=== PATIENT | male | born 1965 | race American Indian/Alaskan Native ===

== ENCOUNTER 2019-06-14 10:51 | Observation (INO) | payer SELFPAY ==
[2019-06-14] MEDS ORDERED: ASPIRIN PO ONE (11:14)
--- NOTE | 2019-06-14 11:50 | XRay Report ---
CHEST 1 VIEW 11:28 AM INDICATION / CLINICAL INFORMATION: Chest Pain. COMPARISON: None available. FINDINGS: SUPPORT DEVICES: None. HEART / MEDIASTINUM: The heart size and pulmonary vasculature are normal. The aorta is normal in ha [place]. LUNGS / PLEURA: No significant pulmonary or pleural abnormality. No pneumothorax. ADDITIONAL FINDINGS: No significant additional findings. IMPRESSION: No acute findings. Signer Name: Hermes Howard MD Signed: 06/14/2019 11:46 AM Workstation Name: [id number]
[2019-06-14] MEDS ORDERED: PEPCID IV ONE (12:08)
[2019-06-14] MEDS ORDERED: NITROSTAT SL PRN (12:08)
[2019-06-14] MEDS ORDERED: NACL 0.9% 1000 ML 1,000 ML IV ONE ×2 (12:08→15:47)
[2019-06-14] MEDS ORDERED: REGLAN IV ONE (12:08)
--- NOTE | 2019-06-14 12:09 | Emergency Department Report ---
ED General Adult HPI - General Chief complaint: Headache Stated complaint: CHEST PAIN/SOB Time Seen by Provider: 06/14/19 11:46 Source: patient, RN notes reviewed Mode of arrival: Ambulatory Limitations: No Limitations - History of Present Illness Initial comments: This is a 54-year-old gentleman. This patient is not known to this provider previously. The patient states she has a history of hypertension. He does not have a local primary care doctor. He also admits to history of recreational crack cocaine use. The patient presents to the ER with multiple complaints. The first complaint is chest pain. The chest pain is left-sided. It does not radiate to the back, arms and neck. There is no vomiting or diaphoresis. There is positive shortness of breath. The shortness of breath is not exertional. He has difficulty describing the nature of the shortness of breath. The patient denies DVT, pulmonary embolism risk factors. The patient endorses a second complaint of headache. The headache is occipital and frontal. The headache is present for a few days. The headache is not sudden or thunderclap in nature. The headache is not maximal intensity. The headache is not the most intense headache of his life. The headache is associa fracisco with resolved binocular blurry vision. This is now resolved. The patient also endorses shortness of breath. It is nonexertional. He indicates he feels like he has to take a deep breath. The patient admits to recreational crack cocaine use a few days ago. This was recreational in nature. -: Gradual, days(s) Location: head, chest Radiation: non-radiation Quality: aching Consistency: intermittent Improves with: none Worsens with: none - Related Data Home Medications Medication Instructions Recorded Confirmed Last Taken Lisinopril [Zestril TAB] 40 mg PO QDAY 06/14/19 06/14/19 06/11/19 amLODIPine [Norvasc] 10 mg PO DAILY 06/14/19 06/14/19 06/11/19 Previous Rx's Medication Instructions Recorded Last Taken Type Aspirin EC [Halfprin EC] 81 mg PO QDAY #30 tablet. 06/15/19 Unknown Rx Famotidine [Pepcid] 20 mg PO BID #60 tablet 06/15/19 Unknown Rx Allergies Allergy/AdvReac Type Severity Reaction Status Date / Time No Known Allergies Allergy Unverified 06/14/19 10:54 ED Review of Systems ROS: Stated complaint: CHEST PAIN/SOB Other details as noted in HPI Constitutional: denies: fever Eyes: vision change ENT: denies: dental pain, hearing loss, epistaxis Respiratory: shortness of breath. denies: cough Cardiovascular: chest pain Gastrointestinal: denies: abdominal pain, nausea, vomiting Genitourinary: denies: dysuria Musculoskeletal: denies: back pain Skin: denies: lesions Neurological: headache. denies: numbness, paresthesias, confusion, abnormal gait, vertigo Psychiatric: denies: homicidal thoughts, suicidal thoughts ED Past Medical Hx - Past Medical History Previous Medical History?: No Hx Hypertension: Yes - Surgical History Past Surgical History?: Yes Additional Surgical History: Right arm - Social History Smoking Status: Current Every Day Smoker Substance Use Type: Alcohol, Cocaine - Medications Home Medications: Home Medications Medication Instructions Recorded Confirmed Last Taken Type Lisinopril [Zestril TAB] 40 mg PO QDAY 06/14/19 06/14/19 06/11/19 History amLODIPine [Norvasc] 10 mg PO DAILY 06/14/19 06/14/19 06/11/19 History Aspirin EC [Halfprin EC] 81 mg PO QDAY #30 tablet. 06/15/19 Unknown Rx Famotidine [Pepcid] 20 mg PO BID #60 tablet 06/15/19 Unknown Rx ED Physical Exam - General Limitations: No Limitations General appearance: alert, in no apparent distress - Head Head exam: Present: atraumatic, normocephalic - Eye Eye exam: Present: normal appearance, PERRL, EOMI, other (visual acuity intact to finger counting and color perception at close distance.). Absent: nystagmus - ENT ENT exam: Present: normal exam, normal orophraynx, mucous membranes moist, normal external ear exam - Neck Neck exam: Present: normal inspection, full ROM. Absent: tenderness, meningismus - Respiratory Respiratory exam: Present: normal lung sounds bilaterally. Absent: respiratory distress - Cardiovascular Cardiovascular Exam: Present: regular rate, normal rhythm, normal heart sounds. Absent: bradycardia, tachycardia, irregular rhythm, systolic murmur, diastolic murmur, rubs, gallop - GI/Abdominal GI/Abdominal exam: Present: soft. Absent: distended, tenderness, guarding, rebound, rigid, pulsatile mass - Rectal Rectal exam: Present: deferred - Extremities Exam Extremities exam: Present: normal inspection, full ROM, normal capillary refill, other (2+ pulses noted in the bilateral upper, lower extremities. Compartments soft. No long bony tenderness. The pelvis is stable.). Absent: pedal edema, joint swelling, calf tenderness - Back Exam Back exam: Present: normal inspection, full ROM. Absent: tenderness, CVA tenderness (R), CVA tenderness (L), paraspinal tenderness, vertebral tenderness - Neurological Exam Neurological exam: Present: alert (there is no past-pointing. There is normal heel to roldan. There is negative pronator drift.), oriented X3, normal gait, other (Extraocular movements intact. Tongue midline. No facial droop. Facial sensation intact to light touch in the V1, V2, V3 distribution bilaterally. 5 and 5 strength in 4 extremities.. Sensation is intact to light touch in 4 extremities.). Absent: motor sensory deficit - Psychiatric Psychiatric exam: Present: anxious - Skin Skin exam: Present: warm, dry, intact, normal color. Absent: rash ED Course Vital Signs 06/14/19 06/14/19 06/14/19 11:11 11:37 11:40 Temperature 97.9 F Pulse Rate 69 60 Respiratory 20 18 Rate Blood Pressure 137/97 142/90 O2 Sat by Pulse 98 100 98 Oximetry 06/14/19 06/14/19 06/14/19 12:01 12:31 13:00 Temperature Pulse Rate 67 60 62 Respiratory 16 15 16 Rate Blood Pressure 142/90 142/90 128/81 O2 Sat by Pulse 98 99 99 Oximetry 06/14/19 06/14/19 06/14/19 13:30 14:00 14:30 Temperature Pulse Rate 66 66 61 Respiratory 17 15 14 Rate Blood Pressure 130/86 141/91 128/83 O2 Sat by Pulse 100 99 99 Oximetry - Reevaluation(s) Reevaluation #1: 06/14/19 14:41 Differential diagnosis, including but not limited to: Migraine headache, tension headache, cluster headache, complex migraine, pulmonary embolus, aortic disease, GERD, gastritis, hiatal hernia, acute coronary syndrome, secondary gain Assessment and plan: 54-year-old gentleman with multiple complaints. The patient is afebrile with reassuring vital signs. His EKG is unremarkable with the exception of left ventricular hypertrophy, and poor R progression. There is no prior EKG available for comparison. Troponin negative 1. Patient not tachycardic or hypoxic. He endorses no DVT or pulmonary embolism risk factors. He is clinically sober at this time, does not meet 1013 criteria. He has a GCS of 15, with an NIH score of 0. No demonstrable visual field deficits on my examination. He walks with a steady gait, and does not desaturate. This is very unlikely to be aortic disease, however, CT scan of the brain is ordered, and CT scan of the chest is ordered. His pain will be treated with nonnarcotic pain medication. Patient has been resting comfortable, and his stretcher, for hours, in no acute distress. 06/14/19 16:16 Reevaluation #2: 06/14/19 15:48 Troponin is negative 2. EKG is unremarkable and unchanged 2. Patient walking around the ER, and in no acute distress, with no obvious exertional shortness of breath. In fact, on reevaluation, patient noted to be walking with nurse to have visual acuity checked, and he is smiling and laughing with the nurse. She notes a visual acuity of 20/25 bilaterally. 06/14/19 16:17 Reevaluation #3: CT scan of the brain is negative for acute disease, however, advanced white matter disease, unanticipated for patient's age is noted. CT scan of the chest is negative for pulmonary embolism, however, coronary artery calcifications are noted. Given the history, objective abnormal findings, lack of ability to closely follow up as an outpatient, heart score, we will recommend admission to the hospital for cardiac risk stratification. Discussed admission to the hospital with patient for cardiac risk stratification and further workup/evaluation, and he is amenable to this plan of care. He is presented to Hospital physician, Dr. neli Sanchez who has accepted the patient to the medical service. 06/14/19 16:35 ED Medical Decision Making - Lab Data Result diagrams: 06/15/19 05:36 06/15/19 05:36 Vital Signs 06/14/19 06/14/19 06/14/19 11:11 11:37 11:40 Temperature 97.9 F Pulse Rate 69 60 Respiratory 20 18 Rate Blood Pressure 137/97 142/90 O2 Sat by Pulse 98 100 98 Oximetry 06/14/19 06/14/1906/14/19 12:01 12:31 13:00 Temperature Pulse Rate 67 60 62 Respiratory 16 15 16 Rate Blood Pressure 142/90 142/90 128/81 O2 Sat by Pulse 98 99 99 Oximetry 06/14/19 13:30 Temperature Pulse Rate 66 Respiratory 17 Rate Blood Pressure 130/86 O2 Sat by Pulse 100 Oximetry Lab Results 06/14/19 06/14/19 06/14/19 Range/Units 11:56 11:56 12:17 WBC 11.6 H (4.5-11.0) K/mm3 RBC 4.18 (3.65-5.03) M/mm3 Hgb 13.7 (11.8-15.2) gm/dl Hct 40.7 (35.5-45.6) % MCV 97 H (84-94) fl MCH 33 H (28-32) pg MCHC 34 (32-34) % RDW 14.4 (13.2-15.2) % Plt Count 203 (140-440) K/mm3 Lymph % (Auto) 10.8 L (13.4-35.0) % [place] % (Auto) 6.2 (0.0-7.3) % Eos % (Auto) 0.3 (0.0-4.3) % Baso % (Auto) 0.8 (0.0-1.8) % Lymph # 1.3 (1.2-5.4) K/mm3 [place] # 0.7 (0.0-0.8) K/mm3 Eos # 0.0 (0.0-0.4) K/mm3 Baso # 0.1 (0.0-0.1) K/mm3 Seg Neutrophils % 81.9 H (40.0-70.0) % Seg Neutrophils # 9.5 H (1.8-7.7) K/mm3 Sodium 139 (137-145) mmol/L Potassium 4.2 (3.6-5.0) mmol/L Chloride 97.7 L (98-107) mmol/L Carbon Dioxide 28 (22-30) mmol/L Anion Gap 18 mmol/L BUN 12 (9-20) mg/dL Creatinine 1.5 (0.8-1.5) mg/dL Estimated GFR 49 ml/min BUN/Creatinine Ratio 8 % Glucose 86 (75-100) mg/dL Calcium 9.4 (8.4-10.2) mg/dL Magnesium 2.20 (1.7-2.3) mg/dL Total Creatine Kinase 215 H (55-170) units/L Troponin T < 0.010 (0.00-0.029) ng/mL Salicylates (2.8-20.0) mg/dL Acetaminophen (10.0-30.0) ug/mL Plasma/Serum Alcohol (0-0.07) % 06/14/19 06/14/19 06/14/19 Range/Units 12:17 12:17 12:17 WBC (4.5-11.0) K/mm3 RBC (3.65-5.03) M/mm3 Hgb (11.8-15.2) gm/dl Hct (35.5-45.6) % MCV (84-94) fl MCH (28-32) pg MCHC (32-34) % RDW (13.2-15.2) % Plt Count (140-440) K/mm3 Lymph % (Auto) (13.4-35.0) % [place] % (Auto) (0.0-7.3) % Eos % (Auto) (0.0-4.3) % Baso % (Auto) (0.0-1.8) % Lymph # (1.2-5.4) K/mm3 [place] # (0.0-0.8) K/mm3 Eos # (0.0-0.4) K/mm3 Baso # (0.0-0.1) K/mm3 Seg Neutrophils % (40.0-70.0) % Seg Neutrophils # (1.8-7.7) K/mm3 Sodium (137-145) mmol/L Potassium (3.6-5.0) mmol/L Chloride (98-107) mmol/L Carbon Dioxide (22-30) mmol/L Anion Gap mmol/L BUN (9-20) mg/dL Creatinine (0.8-1.5) mg/dL Estimated GFR ml/min BUN/Creatinine Ratio % Glucose (75-100) mg/dL Calcium (8.4-10.2) mg/dL Magnesium (1.7-2.3) mg/dL Total Creatine Kinase (55-170) units/L Troponin T (0.00-0.029) ng/mL Salicylates < 0.3 L (2.8-20.0) mg/dL Acetaminophen < 5.0 L (10.0-30.0) ug/mL Plasma/Serum Alcohol < 0.01 (0-0.07) % - EKG Data -: EKG Interpreted by De EKG shows normal: sinus rhythm Rate: normal - EKG Data 06/14/19 14:42 This is a sinus rhythm, 64 bpm, normal axis, QTC within normal limits, left ventricular hypertrophy, poor R progression, not consistent with ST elevation myocardial infarction. The EKG is abnormal, the EKG is not consistent with STEMI. There is no prior for comparison. - Radiology Data Radiology results: pending, report reviewed, image reviewed Print Report Referring Physician: MADIHA SAPP Patient Name: ULISES ALANIS Date of : 1965 Sex: Male Report Date: 2019-06-14 Report Status: Finalized Findings [facility] [address] [place] [address] XRay Report Signed Patient: ULISES ALANIS MR#: [id number] 1987 : 1965 Acct:[id number] Age/Sex: 54 / M ADM Date: 06/14/19 Loc: ED Attending Dr: Ordering Physician: MADIHA SAPP MD Date of Service: 06/14/19 Procedure(s): XR chest 1V ap Accession Number(s): [id number] cc: MADIHA SAPP MD Fluoro Tom e In Minutes: CHEST 1 VIEW 11:28 AM INDICATION / CLINICAL INFORMATION: Chest Pain. COMPARISON: None available. FINDINGS: SUPPORT DEVICES: None. HEART / MEDIASTINUM: The heart size and pulmonary vasculature are normal. The aorta is normal in caliber. LUNGS / PLEURA: No significant pulmonary or pleural abnormality. No pneumothorax. ADDITIONAL FINDINGS: No significant additional findings. IMPRESSION: No acute findings. Signer Name: Hermes Howard MD Signed: 06/14/2019 11:46 AM Workstation Name: [id number] Transcribed By: RT Dictated By: Hermes Howard MD Electronically Authenticated By: Hermes Howard MD Signed Date/Time: 06/14/19 1146 Critical care attestation.: If time is entered above; I have spent that time in minutes in the direct care of this critically ill patient, excluding procedure time. ED Disposition Clinical Impression: Acute chest pain, Visual disturbance, History of headache, History of crack cocaine use, Coronary artery disease Disposition: [id number] OP ADMIT IP TO THIS HOSP Is pt being admited?: Yes Does the pt Need Aspirin: Yes Condition: Stable
[2019-06-14 12:18] LABS: Basophils # (Auto) 0.1 K/mm3 (0.0-0.1); Basophils % (Auto) 0.8 % (0.0-1.8); Eosinophils % (Auto) 0.3 % (0.0-4.3); Hematocrit 40.7 % (35.5-45.6); Hemoglobin 13.7 gm/dl (11.8-15.2); Lymphocytes # (Auto) 1.3 K/mm3 (1.2-5.4); Lymphocytes % (Auto) 10.8 % (13.4-35.0); Mean Corpuscular HGB Conc 34 % (32-34); Mean Corpuscular Volume 97 fl (84-94); Monocytes # (Auto) 0.7 K/mm3 (0.0-0.8); Monocytes % (Auto) 6.2 % (0.0-7.3); Platelet Count 203 K/mm3 (140-440); Red Blood Count 4.18 M/mm3 (3.65-5.03); Red Cell Distribution Width 14.4 % (13.2-15.2)
[2019-06-14 12:30] LABS: BUN/Creatinine Ratio 8; Blood Urea Nitrogen 12 mg/dL (9-20); Calcium 9.4 mg/dL (8.4-10.2); Hemolysis Index 32
--- NOTE | 2019-06-14 16:06 | Cat Scan Report ---
CT of the head without contrast INDICATION: Headache, visual disturbance. TECHNIQUE: Routine CT head without contrast. All CT scans at this location are performed using CT dos e reduction for ALARA by means of automated exposure control. COMPARISON: None. FINDINGS: BRAIN / INTRACRANIAL CONTENTS: No acute hemorrhage, mass effect, midline shift, or hydrocephalus. No appreciable acute large territorial or lacunar infarct. There are moderate areas of hypoattenuation i n the white matter of the cerebral hemispheres. Given the location and appearance, these most likely reflect chronic microvascular angiopathic change. These are considered to be advanced (even for the p atient's age) and probably indicate chronic hypertension, diabetes, and/or chronic kidney disease. ORBITS: No significant abnormality of visualized orbits. SINUSES / MASTOIDS: The paranasal sinuses are mostly clear. There is mild mucosal thickening in both maxillary sinuses. There is significant periodontal disease involving multiple maxillary teeth. ADDITIONAL FINDINGS: None. IMPRESSION: 1. No acute intracranial abnormality. 2. Moderate cerebral white matter hypoattenuation with pattern consistent with chronic microvascular angiopathic change which is advanced for the patient's age. Signer Name: Raghavendra Marquez MD Signed: 06/14/2019 4:01 PM Workstation Name: [id number]
--- NOTE | 2019-06-14 16:13 | Cat Scan Report ---
CT angiography of the chest with intravenous contrast and multiplanar MIP reconstructions INDICATION / CLINICAL INFORMATION: Chest pain and shortness of breath. TECHNIQUE: Axial CT images were obtained after injection of 100 cc Omnipaque 350 intravenously IV contrast using CTA protocol. 3 plane MIP / 3D reconstructions were produced. All CT scans at this location are perf ormed using CT dose reduction for ALARA by means of automated exposure control. COMPARISON: None available. FINDINGS: There is excellent opacification of the pulmonary arterial system bilaterally without intraluminal fi lling defect to suggest acute PTE. The thoracic aorta is normal in caliber without dissection. There is moderate coronary artery calcification in the region of the left main and LAD. The tracheobronchial tree is normal. The lung parenchyma is clear. There is no evidence of adenopathy or effusion. The visualized upper abdomen is normal. No acute osseous abnormality is identified. IMPRESSION: 1. No evidence of acute PTE. 2. Moderate coronary artery calcification. Signer Name: Hermes Howard MD Signed: 06/14/2019 4:09 PM Workstation Name: [id number]
--- NOTE | 2019-06-14 19:23 | History and Physical Report ---
History of Present Illness Date of examination: 06/14/19 Date of admission: 06/14/19 16:36 Chief complaint: Left sided chest pain 2 days History of present illness: 54-year-old male with history of hypertension,recreational crack cocaine use presents to the ER with multiple complaints. The first complaint is chest pain. The chest pain is left-sided. It does not radiate to the back, arms and neck. There is no vomiting or diaphoresis. There is positive shortness of breath. The shortness of breath is not exertional. He has difficulty describing the nature of the shortness of breath. The patient denies DVT, pulmonary embolism risk factors.Chest pain is 6/10 intensity. Also complaints of headache. The headache is occipital and frontal. The headache is present for a few days. The headache is not sudden or thunderclap in nature. The headache is not maximal intensity. The headache is not the most intense headache of his life. The headache is now resolved. The patient also endorses shortness of breath. It is nonexertional. He indicates he feels like he has to take a deep breath. Past Medical History Previous Medical History?: No Hx Hypertension: Yes Surgical History Past Surgical History?: Yes Additional Surgical History: Right arm Social History Smoking Status: Current Every Day Smoker Substance Use Type: Alcohol, Cocaine Family History Htn Medications Home Medications: Home Medications Medication Instructions Recorded Confirmed Last Taken Type Aspirin [Aspirin BABY CHEW TAB] 81 mg PO QDAY #30 tab.chew 06/14/19 Unknown Rx Lisinopril [Zestril TAB] 40 mg PO QDAY 06/14/19 06/14/19 06/11/19 History amLODIPine [Norvasc] 10 mg PO DAILY 06/14/19 06/14/19 06/11/19 History Review of Systems ROS: Stated complaint: CHEST PAIN/SOB Other details as noted in HPI Constitutional: denies: fever Eyes: vision change ENT: denies: dental pain, hearing loss, epistaxis Respiratory: shortness of breath. denies: cough Cardiovascular: chest pain Gastrointestinal: denies: abdominal pain, nausea, vomiting Genitourinary: denies: dysuria Musculoskeletal: denies: back pain Skin: denies: lesions Neurological: headache. denies: numbness, paresthesias, confusion, abnormal gai t, vertigo Psychiatric: denies: homicidal thoughts, suicidal thoughts Medications and Allergies Allergies Allergy/AdvReac Type Severity Reaction Status Date / Time No Known Allergies Allergy Unverified 06/14/19 10:54 Home Medications Medication Instructions Recorded Confirmed Last Taken Type Aspirin [Aspirin BABY CHEW TAB] 81 mg PO QDAY #30 tab.chew 06/14/19 Unknown Rx Lisinopril [Zestril TAB] 40 mg PO QDAY 06/14/19 06/14/19 06/11/19 History amLODIPine [Norvasc] 10 mg PO DAILY 06/14/19 06/14/19 06/11/19 History Active Meds: Active Medications Nitroglycerin (Nitrostat) 0.4 mg SL .Q5MIN PRN PRN Reason: Chest Pain Exam - Constitutional Vitals: Temp Pulse Resp BP Pulse Ox 97.9 F 61 14 128/83 99 06/14/19 11:11 06/14/19 14:30 06/14/19 14:30 06/14/19 14:30 06/14/19 14:30 General appearance: Present: no acute distress, well-nourished - EENT Eyes: Present: PERRL ENT: hearing intact, clear oral mucosa - Neck Neck: Present: supple, normal ROM - Respiratory Respiratory effort: normal Respiratory: bilateral: CTA - Cardiovascular Heart rate: 88 Rhythm: regular Heart Sounds: Present: S1 & S2. Absent: rub, click - Extremities Extremities: no ischemia, pulses intact, pulses symmetrical, No edema Peripheral Pulses: within normal limits - Abdominal General gastrointestinal: Present: soft, non-tender, non-distended, normal bowel sounds Male genitourinary: Present: normal - Integumentary Integumentary: Present: clear, warm, dry - Musculoskeletal Musculoskeletal: gait normal, strength equal bilaterally - Psychiatric Psychiatric: appropriate mood/affect, intact judgment & insight - Neurologic Neurologic: CNII-XII intact, moves all extremities - Allied Health Allied health notes reviewed: nursing, case management Results - Labs CBC & Chem 7: 06/14/19 11:56 06/14/19 11:56 Labs: Laboratory Last Values WBC 11.6 K/mm3 (4.5-11.0) H 06/14/19 11:56 RBC 4.18 M/mm3 (3.65-5.03) 06/14/19 11:56 Hgb 13.7 gm/dl (11.8-15.2) 06/14/19 11:56 Hct 40.7 % (35.5-45.6) 06/14/19 11:56 MCV 97 fl (84-94) H 06/14/19 11:56 MCH 33 pg (28-32) H 06/14/19 11:56 MCHC 34 % (32-34) 06/14/19 11:56 RDW 14.4 % (13.2-15.2) 06/14/19 11:56 Plt Count 203 K/mm3 (140-440) 06/14/19 11:56 Lymph % (Auto) 10.8 % (13.4-35.0) L 06/14/19 11:56 [place] % (Auto) 6.2 % (0.0-7.3) 06/14/19 11:56 Eos % (Auto) 0.3 % (0.0-4.3) 06/14/19 11:56 Baso % (Auto) 0.8 % (0.0-1.8) 06/14/19 11:56 Lymph # 1.3 K/mm3 (1.2-5.4) 06/14/19 11:56 [place] # 0.7 K/mm3 (0.0-0.8) 06/14/19 11:56 Eos # 0.0 K/mm3 (0.0-0.4) 06/14/19 11:56 Baso # 0.1 K/mm3 (0.0-0.1) 06/14/19 11:56 Seg Neutrophils % 81.9 % (40.0-70.0) H 06/14/19 11:56 Seg Neutrophils # 9.5 K/mm3 (1.8-7.7) H 06/14/19 11:56 Sodium 139 mmol/L (137-145) 06/14/19 11:56 Potassium 4.2 mmol/L (3.6-5.0) 06/14/19 11:56 Chloride 97.7 mmol/L (98-107) L 06/14/19 11:56 Carbon Dioxide 28 mmol/L (22-30) 06/14/19 11:56 18 mmol/L 06/14/19 11:56 BUN 12 mg/dL (9-20) 06/14/19 11:56 1.5 mg/dL (0.8-1.5) 06/14/19 11:56 Estimated GFR 49 ml/min 06/14/19 11:56 8 % 06/14/19 11:56 Glucose 86 mg/dL (75-100) 06/14/19 11:56 Calcium 9.4 mg/dL (8.4-10.2) 06/14/19 11:56 Magnesium 2.20 mg/dL (1.7-2.3) 06/14/19 12:17 215 units/L (55-170) H 06/14/19 12:17 < 0.010 ng/mL (0.00-0.029) 06/14/19 14:22 Salicylates < 0.3 mg/dL (2.8-20.0) L 06/14/19 12:17 Acetaminophen < 5.0 ug/mL (10.0-30.0) L 06/14/19 12:17 Plasma/Serum Alcohol < 0.01 % (0-0.07) 06/14/19 12:17 - Imaging and Cardiology EKG: report reviewed Chest x-ray: report reviewed (NAF) Imaging and Cardiology: EKG SINUS BRADYCARDIA HR 60/min [place]: 190 P [place]: 62 PROBABLE LEFT ATRIAL ENLARGEMENT CTA Chest IMPRESSION: 1. No evidence of acute PTE. 2. Moderate coronary artery calcification. Head CT IMPRESSION: 1. No acute intracranial abnormality. 2. Moderate cerebral white matter hypoattenuation with pattern consistent with chronic microvascular angiopathic change which is advanced for the patient's age. Assessment and Plan Advance Directives: Yes (Full code) VTE prophylaxis?: Chemical Plan of care discussed with patient/family: Yes - Patient Problems (1) Acute chest pain Current Visit: Yes Status: Acute Plan to address problem: Chest pain protocol Serial troponins Stress test in the form of treadmill in the morning Differential diagnosis of costochondritis and GERD (2) History of crack cocaine use Current Visit: Yes Status: Chronic Plan to address problem: Patient counseled about the dangers of using crack cocaine especially coronary spasm (3) DVT prophylaxis Current Visit: Yes Status: Acute Plan to address problem: On Lovenox and GI prophylaxis
[2019-06-14] MEDS ORDERED: PERCOCET 5/325 PO PRN (19:30)
[2019-06-14] MEDS ORDERED: TYLENOL PO PRN (19:30)
[2019-06-14] MEDS ORDERED: DILAUDID IV PRN (19:30)
[2019-06-14] MEDS ORDERED: SODIUM CHLORIDE FLUSH SYRINGE 10 ML IV PRN (19:30)
[2019-06-14] MEDS ORDERED: ZOFRAN IV PRN (19:30)
[2019-06-14] MEDS: NORVASC PO SCH (21:52)
[2019-06-14] MEDS: PEPCID IV SCH (21:52)
[2019-06-14] MEDS: ZESTRIL PO SCH (21:52)
[2019-06-14] MEDS: SODIUM CHLORIDE FLUSH SYRINGE 10 ML IV SCH (21:53)
[2019-06-14] MEDS ORDERED: LOVENOX SUB-Q SCH (22:00)
[2019-06-15 06:35] LABS: Basophils % (Auto) 0.6 % (0.0-1.8); Eosinophils # (Auto) 0.1 K/mm3 (0.0-0.4); Eosinophils % (Auto) 1.5 % (0.0-4.3); Hematocrit 40.2 % (35.5-45.6); Hemoglobin 13.3 gm/dl (11.8-15.2); Lymphocytes # (Auto) 2.1 K/mm3 (1.2-5.4); Lymphocytes % (Auto) 30.5 % (13.4-35.0); Mean Corpuscular HGB Conc 33 % (32-34); Mean Corpuscular Volume 98 fl (84-94); Monocytes # (Auto) 0.6 K/mm3 (0.0-0.8); Monocytes % (Auto) 8.9 % (0.0-7.3); Platelet Count 197 K/mm3 (140-440); Red Cell Distribution Width 14.3 % (13.2-15.2)
[2019-06-15 06:53] LABS: Alanine Aminotransferase 7 units/L (7-56); Albumin 3.2 g/dL (3.9-5); BUN/Creatinine Ratio 6; Blood Urea Nitrogen 9 mg/dL (9-20); Calcium 8.7 mg/dL (8.4-10.2); Hemolysis Index 3
[2019-06-15] MEDS ORDERED: ASPIRIN PO SCH (10:00)
[2019-06-15] MEDS: PEPCID IV SCH (11:45)
[2019-06-15] MEDS: NORVASC PO SCH (11:45)
[2019-06-15] MEDS: ZESTRIL PO SCH (11:46)
[2019-06-15] MEDS: SODIUM CHLORIDE FLUSH SYRINGE 10 ML IV SCH (11:46)
--- NOTE | 2019-06-15 12:06 | Discharge Summary ---
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 Assessment: 1.Chest pain due to GERD Follow up with: [facility] [Provider Group] - 3-5 Days [facility] [Provider Group] - 3-5 Days (Alternatively, you may call [phone] to request an appointment. [id number] [facility] [address] Office: [phone] Hours: Wednesday - Wednesday 8:30 a.m. to 5:00 p.m.) [facility] [Provider Group] - 3-5 Days
[2019-06-15 20:11] VITALS: BP 144/94
--- NOTE | 2019-06-16 03:02 | Treadmill Report ---
TREADMILL STRESS TEST REPORT REASON FOR STUDY: Chest pain. STRESS TEST PROTOCOL: The patient completed 11 minutes and 45 seconds of a Jorge protocol. He attained a peak heart rate of 120 per minute, which is 71% of his age predicted maximum (11.9 METS). No ischemic ECG changes. No chest pain. No arrhythmias. The test was terminated due to fatigue and lightheadedness. IMPRESSION: Negative submaximal stress test. No evidence of stress-induced ischemia at stress level attained. JOB# [id number] AGO/NTS
== END 2019-06-15 17:50 | disposition home or self-care (01) ==
LOC: ED 10:51 → 4A 16:36
PROVIDERS: ADMIT Internal Medicine; ATTEND Internal Medicine
DX: R07.89 Other chest pain (principal); I10 Essential (primary) hypertension; F17.210 Nicotine dependence, cigarettes, uncomplicated; Z79.82 Long term (current) use of aspirin
CPT/HCPCS: 36415; 70450; 71045; 71275; 80048; 80053; 82550; 83036; 83735; 84484; 85025; 93005; 93010; 93017; 96372; 96374; 96375; 96376; 99284; 99406; G0378; J1650; J2765; J7030; Q9967; 80320; G0480